=== PATIENT | female | born 1965 | race Caucasian/White ===

== ENCOUNTER 2019-01-02 21:32 | Emergency (ER) | payer MEDICAID ==
[~2019-01-02] VITALS: Ht 167.6 cm; Wt 93.1 kg
[2019-01-02 21:36] VITALS: Ht 167.6 cm; Wt 93.1 kg
--- NOTE | 2019-01-03 00:18 | ERD ---
ER Documentation Chief Complaint Chief Complaint INFLAMATION/ PAIN AROUND COLOSTOMY SITE HPI During the patient's encounter translation services were utilized Language: Macanese Source: [Family] 53-year-old female history of colostomy who notes his irritation over the past 48 hours to the colostomy site. The skin is red and irritated and painful and burning. No fevers or chills, no significant drainage or discharge. Toes are moderate at this time. The patient does not know how to care for ostomy based on these wounds. ROS All systems reviewed and are negative except as per history of present illness. Allergies Allergies: Coded Allergies: No Known Allergy (Unverified , 01/02/19) FmHx Family History: No diabetes Physical Exam Vitals Vital Signs Date Temp Pulse Resp B/P (MAP) Pulse Ox O2 O2 Flow FiO2 Time Delivery Rate 01/02/19 98.1 83 18 133/64 97 21:36 (87) Physical Exam General: Well developed, well nourished, no acute distress Head: Normocephalic, atraumatic. Eyes: EOM intact ENT: Moist mucous membranes Neck: Full ROM Respiratory: No respiratory distress Cardiovascular: Well perfused distally Abdominal: Nondistended, ostomy site without evidence of protrusion. Stoma well-appearing. Surrounding skin is consistent with contact dermatitis, excoriated, no satellite lesions, no warmth or tenderness. : Deferred MSK: No edema, no unilateral swelling, 5/5 strength Neurologic: Alert and oriented, moving all extremities, normal speech, steady gait Skin: As described above Psych: Normal mood Procedures/MDM Clinical exam consistent with irritant contact dermatitis. Localized wound care provided by nursing staff. Wound care precautions discussed with patient. The patient can be safely discharged. No signs of fungal infection, bacterial infection. No indication for antibiotics. The patient does not have an identifiable emergent medical condition that warrants inpatient hospitalization at this time. The patient is deemed safe for discharge with outpatient follow-up. We discussed follow up with the patient's primary care doctor within 24 to 48 hours as needed. We also discussed return to the emergency room for worsening symptoms or worsening condition. Outpatient referral: None required Discharge Medications: None required Departure Diagnosis: Primary Impression: Contact dermatitis Contact dermatitis type: irritant Contact dermatitis trigger: unspecified trigger Qualified Codes: L24.9 - Irritant contact dermatitis, unspecified cause Condition: Stable Patient Instructions: Contact Dermatitis [facility] Usted se mcneal hecho un examen mdico de control que le indica que no est en thu condicin que requiera tratamiento urgente en el Departamento de Emergencia. Un estudio ms profundo y el tratamiento de cho condicin pueden esperar sin ningn riesgo hasta que usted sea atendida/o en el consultorio de cho mdico o thu clnica. Es responsabilidad suya arreglar thu alana para el seguimiento del abisai. MANEJO DE CONDICIONES NO URGENTES EN EL FUTURO 1) Si usted tiene un mdico de atencin primaria: Usted debera llamar a cho mdico de atencin primaria antes de venir al departamento de emergencia. Despus de las horas de consultorio, cho doctor o cho asociado/a est disponible por telfono. El mdico o enfermero de ted en el servicio telefnico puede asesorarle por oscar medio para atender el problema, o abisai contrario se puede programar thu alana. 2) Si usted no tiene un mdico de atencin primaria: Llame al mdico o clnica de referencia que aparece abajo raghu las horas de consultorio para hacer thu alana para que le vean. CLINICAS: [facility] 300 [phone] [facility] [place] [phone] [facility] [phone] [facility]. [facility] [phone] [place] [phone] [facility]. [phone] [address] [facility] () Usted se mcneal hecho un examen mdico de control que le indica que no est en thu condicin que requiera tratamiento urgente en el Departamento de Emergencia. Un estudio ms profundo y el tratamiento de cho condicin pueden esperar sin ningn riesgo hasta que usted sea atendida/o en el consultorio de cho mdico o thu clnica. Es responsabilidad suya arreglar thu alana para el seguimiento del abisai. MANEJO DE CONDICIONES NO URGENTES EN EL FUTURO 1) Si usted tiene un mdico de atencin primaria: Usted debera llamar a cho mdico de atencin primaria antes de venir al departamento de emergencia. Despus de las horas de consultorio, cho doctor o cho asociado/a est disponible por telfono. El mdico o enfermero de ted en el servicio telefnico puede asesorarle por oscar medio para atender el problema, o abisai contrario se puede programar thu alana. 2) Si usted no tiene un mdico de atencin primaria: Llame al mdico o condado institucions de referencia que aparece abajo raghu las horas de consultorio para hacer thu alana para que le vean. SI USTED NO PUEDE PAGAR PARA NATHALIE UN MEDICO puede ir a: [facility] [address] [place] [address] [facility] [address] [place] [address] [facility] [address] [place] [address] [facility] [facility] [address] [place], [place] [id number] Additional Instructions: Llame al doctor nombrado abajo (Referral Sources) MAANA y giuliana thu ALANA PARA DENTRO DE THU SEMANA. Dgale a la secretaria que nosotros le instruimos hacer esta alana.Avise o llame si cho condicin se empeora antes de la alana. JOHNNIE PARRA MD Jan 03, 2019 00:17
[2019-01-03 00:35] VITALS: BP 128/81; PULSE 81; RESP 18
== END 2019-01-03 00:36 | disposition home or self-care (01) ==
LOC: E/R 21:32
DX: L24.9 Irritant contact dermatitis, unspecified cause (principal)
CPT/HCPCS: 99282